=== PATIENT | female | born 1995 | race Caucasian/White ===

== ENCOUNTER 2020-03-19 20:15 | Inpatient (IN) | payer OTHER, SELFPAY ==
[2020-03-19] MEDS ORDERED: TERBUTALINE 1 MG/1 ML INJ SUB-Q PRN (21:22)
[2020-03-19] MEDS ORDERED: LIDOCAINE (2%) 20 MG/1 ML VIAL 20 ML MDV INFILTRATI ONE (21:22)
[2020-03-19] MEDS ORDERED: fentaNYL 100 MCG/2 ML INJ IV PRN (21:22)
[2020-03-19] MEDS ORDERED: ePHEDrine SULFATE 50 MG/1 ML INJ IV PRN (21:22)
[2020-03-19] MEDS ORDERED: MINERAL OIL 30 ML ORAL LIQD PO PRN (21:22)
[2020-03-19] MEDS ORDERED: AMPICILLIN/NS 2 GM/100 ML 2 GM/100 ML BAG IV ONE (21:22)
[2020-03-19] MEDS: LACTATED RINGERS 1,000 ML IV SCH ×2 (21:52→22:50)
[2020-03-19] MEDS ORDERED: OXYTOCIN 20 UNIT/1000ML DRIP 20 UNITS/1,000 ML BAG IV SCH (22:00)
[2020-03-19 22:06] LABS: Hemoglobin 11.4 gm/dl (10.1-14.3); Mean Corpuscular HGB Conc 34 % (30-34); Mean Corpuscular Volume 88 fl (79-97); Platelet Count 223 K/mm3 (140-440); Red Blood Count 3.87 M/mm3 (3.65-5.03); Red Cell Distribution Width 17.4 % (13.2-15.2)
--- NOTE | 2020-03-19 22:51 | History and Physical Report ---
History of Present Illness Date of examination: 03/19/20 Date of admission: 03/19/20 21:22 Chief complaint: Here for scheduled IOL. History of present illness: 25 year old here for scheduled IOL. Patient received care at [facility] and she brings records with her. LMP 06/05/2019. EDC 03/11/2020. significant for the following: GBS bacteriuria (treated during ), anemia (supplemented with iron), chlamydia (treated and cured). labs are as follows: A+, antibody screen negative,, rubella immune, hepatitis B surface antigen negative, HIV negative, RPR nonreactive, chlamydia positive/negative, gonorrhea negative/negative, GBS positive, AFP tetra negative, 1 hour sugar test 95. Past History Past Medical History: no pertinent history Past Surgical History: no surgical history [employer] History: chlamydia (treated during and cured). denies: gonorrhea, hepatitis B, hepatitis C, herpes, HIV, syphilis, trichomonas Family/Genetic History: none Social history: lives with family, full code. denies: smoking, alcohol abuse, prescription drug abuse, IV drug use - Obstetrical History Expected Date of Delivery: 03/11/20 Actual Gestation: 41 Week(s) 1 Day(s) : 1 Para: 0 Hx # Term Pregnancies: 0 Number of Pregnancies: 0 Spontaneous Abortions: 0 Induced : 0 Number of Living Children: 0 Medications and Allergies Allergies Allergy/AdvReac Type Severity Reaction Status Date / Time No Known Allergies Allergy Unverified 03/19/20 21:33 Home Medications Medication Instructions Recorded Confirmed Last Taken Type Pnv Plus Multivit Tab 1 tab PO DAILY 03/19/20 03/19/20 03/19/20 History 0900 Active Meds: Active Medications Acetaminophen (Tylenol) 650 mg PO Q4H PRN PRN Reason: Pain, Mild (1-3) Ephedrine Sulfate (Ephedrine Sulfate) 10 mg IV Q2M PRN PRN Reason: Hypotension Fentanyl (Sublimaze) 100 mcg IV Q2H PRN PRN Reason: Pain,Severe (7-10) LABOR PAIN Oxytocin/Sodium Chloride (Pitocin/Ns 30 Unit/500ml) 30 units in 500 mls @ 2 mls/hr IV TITR SUSANNE; Protocol Lactated Ringer's (Lactated Ringers) 1,000 mls @ 125 mls/hr IV DIRECT SUSANNE Last Admin: 03/19/20 21:52 Dose: 125 mls/hr Documented by: Oxytocin/Sodium Chloride (Pitocin/Ns 20 Unit/1000ml Drip) 20 units in 1,000 mls @ 125 mls/hr IV DIRECT SUSANNE Ampicillin Sodium (Ampicillin/Ns 1 Gm/50 Ml) 1 gm in 50 mls @ 100 mls/hr IV Q4HR SUSANNE; Protocol Mineral Oil (Mineral Oil) 30 ml PO QHS PRN PRN Reason: Constipation Terbutaline Sulfate (Brethine) 0.25 mg SUB-Q ONCE PRN PRN Reason: Hyperstimulation/Hypertonicity Review of Systems All systems: negative (intermittent mild contractions) - Vital Signs Vital signs: Vital Signs Temp Resp 99.7 F H 18 03/19/20 21:35 03/19/20 21:35 Temp Pulse Resp BP Pulse Ox 99.7 F H 75 18 115/75 03/19/20 21:35 03/19/20 21:51 03/19/20 21:35 03/19/20 21:51 - Physical Exam Abdomen: Positive: normal appearance, soft. Negative: distention, tenderness, guarding, rigidity Genitourinary (Female): Positive: normal external genitalia, normal perenium. Negative: perineal/vulvar lesions (no lesions seen on careful exam with bright.) Vagina: Positive: normal moisture Uterus: Positive: enlarged. Negative: tender Anus/Rectum: Positive: normal perianal skin Extremities: Positive: normal. Negative: edema - Obstetrical FHR: category 1 Uterine Contraction Monitor Mode: External Cervical Dilatation: 0 Cervical Effacement Percentage: 0 station: -2 Uterine Contraction Pattern: Irregular Uterine Contraction Intensity: Mild Results Result Diagrams: 03/19/20 21:20 Abnormal lab results 03/19/20 Range/Units 21:20 RDW 17.4 H (13.2-15.2) % All other labs normal. Assessment and Plan A: at 41 weeks, 1 day gestation. IOL. GBS positive. P: Admit. Continuous EFM. GBS prophylaxis. Pitocin cervical ripening and IOL. Pt. consented to cervical ripening and IOL.
--- NOTE | 2020-03-19 23:37 | Ultrasound Report ---
US OB limited INDICATION / CLINICAL INFORMATION: presentation, EFW. COMPARISON: None FINDINGS: Exam was done for positioning and weight. Single intrauterine in cephalic presentation. heart rate 134. Estimated weight is 3918 g. IMPRESSION: 1. Viable, term intrauterine . Cephalic presentation. EFW 3918 g. Signer Name: Obed Emerson MD Signed: 03/19/2020 11:32 PM Workstation Name: [id number]
[2020-03-20] MEDS: OXYTOCIN DRIP 30 UNITS/500 ML BAG IV SCH ×2 (00:04→19:55)
[2020-03-20] MEDS: AMPICILLIN/NS 1 GM/50 ML 1 GM/50 ML BAG IV SCH ×2 (03:00→05:45)
[2020-03-20] MEDS: LACTATED RINGERS 1,000 ML IV SCH ×2 (06:34→21:54)
--- NOTE | 2020-03-20 12:10 | Event Note ---
Date: 03/20/20 Patient is having labor induction; receiving dose Pitocin for cervical ripening/induction. Doing well.
[2020-03-20] MEDS ORDERED: DINOPROSTONE 10 MG VAG SUPP VG ONE (19:19)
[2020-03-21] MEDS: LACTATED RINGERS 1,000 ML IV SCH ×2 (06:59→20:30)
--- NOTE | 2020-03-21 09:23 | Progress Note ---
Assessment and Plan A: at 41 3/7 weeks gestation. IOL. GBS positive. P: Pitocin induction of labor. GBS prophylaxis. Subjective - Subjective Date of service: 03/21/20 Principal diagnosis: at 41 weeks, 3 days gestation Interval history: Patient has been undergoing cervical ripening because she is overdue and her cervix was unfavorable upon admission. Patient has had mild contractions overnight. Denies LOF or VB. Reports good movement. Patient reports: movement normal, contractions, no new complaints, no loss of fluid, no vaginal bleeding Objective - Vital Signs Vital Signs: Vital Signs - 12hr 03/20/20 03/20/20 03/20/20 21:31 22:01 22:31 Temperature Pulse Rate 70 80 123 H Blood Pressure 102/58 126/68 119/56 03/20/20 03/20/20 03/21/20 23:01 23:31 00:01 Temperature Pulse Rate 79 77 74 Blood Pressure 101/57 122/65 98/55 03/21/20 03/21/20 03/21/20 00:31 01:01 01:31 Temperature Pulse Rate 88 72 73 Blood Pressure 106/57 102/62 95/56 03/21/20 03/21/20 03/21/20 02:01 02:31 03:01 Temperature Pulse Rate 87 86 72 Blood Pressure 116/72 114/69 114/74 03/21/20 03/21/20 03/21/20 03:31 04:01 04:02 Temperature Pulse Rate 73 77 67 Blood Pressure 107/60 129/61 116/58 03/21/20 03/21/20 03/21/20 04:31 05:01 05:31 Temperature Pulse Rate 82 71 80 Blood Pressure 95/55 105/67 113/56 03/21/20 03/21/20 03/21/20 06:01 07:01 07:31 Temperature Pulse Rate 86 69 70 Blood Pressure 105/59 111/71 109/69 03/21/20 03/21/20 03/21/20 07:59 08:02 08:36 Temperature 97.9 F Pulse Rate 76 76 Blood Pressure 114/80 117/58 - Exam Abdomen: Present: normal appearance, soft. Absent: distention, tenderness, guarding, rigidity Uterus: Present: fundal height above umbilicus. Absent: tenderness FHR: category 1 Uterine Contraction Monitor Mode: External Cervical Dilatation: 3.5 Cervical Effacement Percentage: 80 station: -2 Uterine Contraction Pattern: Irregular Uterine Contraction Intensity: Mild Extremities: normal - Labs Labs: Abnormal Labs 03/19/20 21:20 RDW 17.4 H Laboratory Results - last 24 hr 03/20/20 11:34 Coronavirus (PCR) Negative
[2020-03-21] MEDS: AMPICILLIN/NS 1 GM/50 ML 1 GM/50 ML BAG IV SCH ×3 (12:08→21:52)
--- NOTE | 2020-03-21 23:13 | Event Note ---
Date: 03/21/202.
[2020-03-22] MEDS: ACETAMINOPHEN 325 MG TAB PO PRN ×2 (02:43→10:00)
--- NOTE | 2020-03-22 03:00 | Event Note ---
Date: 03/22/20 Patient requests epidural. SVE 4.5/90/-2/BBOW. Category 1 FHR tracing.
[2020-03-22] MEDS ORDERED: DEXMEDETOMIDINE 200 MCG/2 ML VIAL IV ONE ×2 (03:08→23:39)
[2020-03-22] MEDS ORDERED: NalbUPHINE 10 MG/1 ML INJ IV PRN (03:34)
[2020-03-22] MEDS ORDERED: diphenhydrAMINE 50 MG/ML VIAL IV PRN (03:34)
[2020-03-22] MEDS ORDERED: NALOXONE 2 MG/2 ML INJ IV PRN (03:34)
--- NOTE | 2020-03-22 03:35 | Anesthesia Consultation ---
Anesthesia Consult and Med Hx Date of service: 03/22/20 - Airway Anesthetic Teeth Evaluation: Good ROM Head & Neck: Adequate Mental/Hyoid Distance: Adequate Mallampati Class: Class II Intubation Access Assessment: Good - Pulmonary Exam CTA: Yes - Cardiac Exam Cardiac Exam: RRR - Pre-Operative Health Status ASA Pre-Surgery Classification: ASA2 Proposed Anesthetic Plan: Epidural - Pulmonary Hx Smoking: No Hx Asthma: No COPD: No Hx Pneumonia: No Hx Sleep Apnea: No - Cardiovascular System Hx Hypertension: No - Central Nervous System Hx Seizures: No Hx Psychiatric Problems: No - Gastrointestinal Hx Gastroesophageal Reflux Disease: No - Endocrine Hx Renal Disease: No Hx End Stage Renal Disease: No Hx Hypothyroidism: No Hx Hyperthyroidism: No - Hematic Hx Anemia: No Hx Sickle Cell Disease: No - Other Systems Hx Alcohol Use: No
--- NOTE | 2020-03-22 03:37 | Progress Note ---
Labor Epidural - Labor Epidural Start Time: 03:13 Stop Time: 03:30 Performed by:: PHILLIP ROSSI Procedure: Patient is requesting a laboring epidural for laboring pain. Patient IDed, H&P reviewed, all questions and concerns were answered, and consent was signed. Timeout was performed at bedside. Patient in sitting position. Sterile prep and drape was performed. 3ml of 1% lidocaine skin wheal at L[3]- L [4]. 18- gauge Touhy epidural needle was advanced to loss of resistance with air technique. Negative CSF negative blood. Epidural catheter advanced to [12] centimeters. [-] Aspiration [-] test dose. Sterile dressing applied. Patient tolerated procedure.
[2020-03-22] MEDS: AMPICILLIN/NS 1 GM/50 ML 1 GM/50 ML BAG IV SCH ×4 (03:46→21:19)
[2020-03-22] MEDS: LACTATED RINGERS 1,000 ML IV SCH ×3 (05:23→22:33)
[2020-03-22] MEDS: fentaNYL-BUPIV 2 MCG/ML-0.125% 200 MCG/100 ML BAG EPIDURAL SCH ×3 (05:27→22:49)
--- NOTE | 2020-03-22 07:08 | Event Note ---
Date: 03/22/20 /-2/BBOW. Category 1 FHR tracing. MD aware of slow progress of labor. Pt. comfortable after receiving epidural. Pitocin augmentation continues.
[2020-03-22] MEDS: ONDANSETRON 4 MG/2 ML INJ IV PRN (10:04)
--- NOTE | 2020-03-22 10:35 | Progress Note ---
Assessment and Plan A: IUP @ 41 4/7 Weeks Category I Tracing Active Labor GBS Positive P: Continue Pitocin Augmentation Continue GBS Prophylaxis AROM Internals X 2 Multiple Maternal Position Changes Subjective - Subjective Principal diagnosis: at 41 weeks, 3 days gestation Patient reports: movement normal, other (Resting well under epidural anesthesia), no new complaints, no loss of fluid, no vaginal bleeding Objective - Vital Signs Vital Signs: Vital Signs - 12hr 03/21/20 03/21/20 03/21/20 22:31 22:32 22:37 Temperature Pulse Rate 72 76 83 Blood Pressure 119/75 O2 Sat by Pulse 99 100 Oximetry 03/21/20 03/21/20 03/21/20 22:42 22:47 22:52 Temperature Pulse Rate 89 83 80 Blood Pressure O2 Sat by Pulse 98 100 100 Oximetry 03/21/20 03/21/20 03/21/20 22:57 23:01 23:02 Temperature Pulse Rate 75 72 80 Blood Pressure 118/70 O2 Sat by Pulse 100 100 Oximetry 03/21/20 03/21/20 03/21/20 23:07 23:12 23:27 Temperature Pulse Rate 85 76 Blood Pressure O2 Sat by Pulse 100 99 79 L Oximetry 03/21/20 03/21/20 03/21/20 23:29 23:31 23:34 Temperature Pulse Rate 79 85 73 Blood Pressure 118/78 O2 Sat by Pulse 98 100 Oximetry 03/21/20 03/21/20 03/21/20 23:39 23:44 23:49 Temperature Pulse Rate 76 73 71 Blood Pressure O2 Sat by Pulse 100 100 100 Oximetry 03/21/20 03/21/20 03/22/20 23:54 23:59 00:01 Temperature Pulse Rate 90 74 71 Blood Pressure 110/68 O2 Sat by Pulse 100 100 Oximetry 03/22/20 03/22/20 03/22/20 00:04 00:09 00:14 Temperature Pulse Rate 70 77 76 Blood Pressure O2 Sat by Pulse 100 100 100 Oximetry 03/22/20 03/22/20 03/22/20 00:19 00:24 00:29 Temperature Pulse Rate 78 84 78 Blood Pressure O2 Sat by Pulse 100 100 100 Oximetry 03/22/20 03/22/20 03/22/20 00:31 00:34 00:39 Temperature Pulse Rate 72 79 80 Blood Pressure 113/74 O2 Sat by Pulse 100 81 L Oximetry 03/22/20 03/22/20 03/22/20 00:44 00:49 00:54 Temperature Pulse Rate 76 89 78 Blood Pressure O2 Sat by Pulse 99 99 99 Oximetry 03/22/20 03/22/20 03/22/20 00:59 01:01 01:04 Temperature Pulse Rate 76 82 83 Blood Pressure 126/77 O2 Sat by Pulse 100 99 Oximetry 03/22/20 03/22/20 03/22/20 01:09 01:14 01:19 Temperature Pulse Rate 86 88 87 Blood Pressure O2 Sat by Pulse 98 99 100 Oximetry 03/22/20 03/22/20 03/22/20 01:24 01:29 01:31 Temperature Pulse Rate 85 78 81 Blood Pressure 107/66 O2 Sat by Pulse 99 99 Oximetry 03/22/20 03/22/20 03/22/20 01:34 01:39 01:44 Temperature Pulse Rate 102 H 84 83 Blood Pressure O2 Sat by Pulse 97 100 99 Oximetry 03/22/20 03/22/20 03/22/20 01:49 01:54 01:59 Temperature Pulse Rate 82 76 81 Blood Pressure O2 Sat by Pulse 98 99 99 Oximetry 03/22/20 03/22/20 03/22/20 02:03 02:04 02:09 Temperature Pulse Rate 77 74 76 Blood Pressure 116/65 O2 Sat by Pulse 99 99 Oximetry 03/22/20 03/22/20 03/22/20 02:14 02:19 02:24 Temperature Pulse Rate 78 76 79 Blood Pressure O2 Sat by Pulse 99 98 100 Oximetry 03/22/20 03/22/20 03/22/20 02:29 02:32 02:34 Temperature Pulse Rate 85 78 72 Blood Pressure 119/64 O2 Sat by Pulse 99 99 Oximetry 03/22/20 03/22/20 03/22/20 02:39 02:44 02:49 Temperature Pulse Rate 76 75 94 H Blood Pressure O2 Sat by Pulse 100 100 99 Oximetry 03/22/20 03/22/20 03/22/20 02:54 02:59 03:01 Temperature Pulse Rate 94 H 97 H 86 Blood Pressure 114/74 O2 Sat by Pulse 100 100 Oximetry 03/22/20 03/22/20 03/22/20 03:04 03:09 03:10 Temperature 98.8 F Pulse Rate 90 114 H Blood Pressure O2 Sat by Pulse 100 91 Oximetry 03/22/20 03/22/20 03/22/20 03:13 03:14 03:16 Temperature Pulse Rate 109 H 86 75 Blood Pressure 148/90 123/80 129/81 O2 Sat by Pulse 100 Oximetry 03/22/20 03/22/20 03/22/20 03:18 03:19 03:20 Temperature Pulse Rate 85 95 H 83 Blood Pressure 130/83 127/81 O2 Sat by Pulse 100 Oximetry 03/22/20 03/22/20 03/22/20 03:22 03:24 03:26 Temperature Pulse Rate 82 83 85 Blood Pressure 125/80 125/81 121/81 O2 Sat by Pulse 100 Oximetry 03/22/20 03/22/20 03/22/20 03:28 03:29 03:30 Temperature Pulse Rate 104 H 85 78 Blood Pressure 126/81 124/72 O2 Sat by Pulse 100 Oximetry 03/22/20 03/22/20 03/22/20 03:32 03:34 03:35 Temperature Pulse Rate 71 77 77 Blood Pressure 112/59 110/64 O2 Sat by Pulse 100 Oximetry 03/22/20 03/22/20 03/22/20 03:36 03:38 03:39 Temperature Pulse Rate 73 74 78 Blood Pressure 109/61 110/58 O2 Sat by Pulse 100 Oximetry 03/22/20 03/22/20 03/22/20 03:44 03:49 03:54 Temperature Pulse Rate 82 82 77 Blood Pressure 104/60 O2 Sat by Pulse 100 99 99 Oximetry 03/22/20 03/22/20 03/22/20 03:59 04:04 04:09 Temperature Pulse Rate 81 79 79 Blood Pressure O2 Sat by Pulse 99 99 99 Oximetry 03/22/20 03/22/20 03/22/20 04:10 04:14 04:19 Temperature Pulse Rate 79 82 83 Blood Pressure 101/59 O2 Sat by Pulse 99 98 Oximetry 03/22/20 03/22/20 03/22/20 04:24 04:29 04:34 Temperature Pulse Rate 82 81 81 Blood Pressure 97/55 O2 Sat by Pulse 98 98 98 Oximetry 03/22/20 03/22/20 03/22/20 04:39 04:44 04:49 Temperature Pulse Rate 80 83 82 Blood Pressure 97/53 O2 Sat by Pulse 98 98 99 Oximetry 03/22/20 03/22/20 03/22/20 04:54 04:55 04:59 Temperature Pulse Rate 79 78 81 Blood Pressure 98/55 O2 Sat by Pulse 98 98 Oximetry 03/22/20 03/22/20 03/22/20 05:04 05:09 05:14 Temperature Pulse Rate 81 83 106 H Blood Pressure 96/55 O2 Sat by Pulse 99 99 100 Oximetry 03/22/20 03/22/20 03/22/20 05:19 05:24 05:25 Temperature Pulse Rate 76 79 74 Blood Pressure 97/52 O2 Sat by Pulse 98 99 Oximetry 03/22/20 03/22/20 03/22/20 05:29 05:34 05:39 Temperature Pulse Rate 82 80 81 Blood Pressure 103/53 O2 Sat by Pulse 99 99 99 Oximetry 03/22/20 03/22/20 03/22/20 05:44 05:49 05:54 Temperature Pulse Rate 78 79 77 Blood Pressure O2 Sat by Pulse 99 99 99 Oximetry 03/22/20 03/22/20 03/22/20 05:55 05:59 06:04 Temperature Pulse Rate 77 83 82 Blood Pressure 100/56 O2 Sat by Pulse 99 99 Oximetry 03/22/20 03/22/20 03/22/20 06:09 06:11 06:14 Temperature Pulse Rate 77 76 82 Blood Pressure 103/59 O2 Sat by Pulse 99 99 Oximetry 03/22/20 03/22/20 03/22/20 06:19 06:24 06:25 Temperature Pulse Rate 90 80 82 Blood Pressure 103/55 O2 Sat by Pulse 99 98 Oximetry 03/22/20 03/22/20 03/22/20 06:29 06:34 06:39 Temperature Pulse Rate 86 83 84 Blood Pressure 97/54 O2 Sat by Pulse 99 99 99 Oximetry 03/22/20 03/22/20 03/22/20 06:44 06:49 06:54 Temperature Pulse Rate 80 83 79 Blood Pressure O2 Sat by Pulse 99 99 99 Oximetry 03/22/20 03/22/20 03/22/20 06:56 06:59 07:04 Temperature Pulse Rate 77 89 94 H Blood Pressure 103/56 O2 Sat by Pulse 100 99 Oximetry 03/22/20 03/22/20 03/22/20 07:09 07:14 07:19 Temperature Pulse Rate 82 76 76 Blood Pressure 99/56 O2 Sat by Pulse 100 99 99 Oximetry 03/22/20 03/22/20 03/22/20 07:24 07:29 07:34 Temperature Pulse Rate 76 75 72 Blood Pressure O2 Sat by Pulse 99 99 99 Oximetry 03/22/20 03/22/20 03/22/20 07:39 07:44 07:49 Temperature Pulse Rate 68 71 75 Blood Pressure O2 Sat by Pulse 99 99 99 Oximetry 03/22/20 03/22/20 03/22/20 07:54 07:59 08:04 Temperature Pulse Rate 70 73 73 Blood Pressure O2 Sat by Pulse 99 99 99 Oximetry 03/22/20 03/22/20 03/22/20 08:09 08:14 08:19 Temperature Pulse Rate 74 74 73 Blood Pressure O2 Sat by Pulse 99 98 99 Oximetry 03/22/20 03/22/20 03/22/20 08:24 08:25 08:29 Temperature Pulse Rate 81 82 69 Blood Pressure 103/55 O2 Sat by Pulse 100 100 Oximetry 03/22/20 03/22/20 03/22/20 08:34 08:39 08:44 Temperature Pulse Rate 70 74 74 Blood Pressure 104/57 O2 Sat by Pulse 99 99 99 Oximetry 03/22/20 03/22/20 03/22/20 08:49 08:54 08:56 Temperature Pulse Rate 78 74 69 Blood Pressure 110/59 O2 Sat by Pulse 99 99 Oximetry 03/22/20 03/22/20 03/22/20 08:59 09:04 09:09 Temperature Pulse Rate 84 70 79 Blood Pressure O2 Sat by Pulse 99 99 100 Oximetry 03/22/20 03/22/20 03/22/20 09:10 09:14 09:19 Temperature Pulse Rate 75 91 H 75 Blood Pressure 114/62 O2 Sat by Pulse 99 99 Oximetry 03/22/20 03/22/20 03/22/20 09:24 09:29 09:34 Temperature Pulse Rate 75 76 78 Blood Pressure 120/71 O2 Sat by Pulse 100 99 100 Oximetry 03/22/20 03/22/20 03/22/20 09:39 09:44 09:49 Temperature Pulse Rate 80 78 81 Blood Pressure O2 Sat by Pulse 100 100 100 Oximetry 03/22/20 03/22/20 09:54 09:59 Temperature Pulse Rate 90 81 Blood Pressure O2 Sat by Pulse 100 100 Oximetry - Exam Cardiovascular: Regular rate Lungs: Normal air movement Abdomen: Present: normal appearance, soft Uterus: Present: normal, firm, fundal height above umbilicus FHR: category 1 Uterine Contraction Monitor Mode: Internal Cervical Dilatation: 5 (Thick brown meconium stained fluids upon AROM at 1017) Cervical Effacement Percentage: 80 station: -2 Uterine Contraction Pattern: Irregular Uterine Tone Measurement Phase: Resting Uterine Contraction Intensity: Moderate Extremities: normal - Labs Labs: Abnormal Labs 03/19/20 21:20 RDW 17.4 H
[2020-03-22 13:42] LABS: Hematocrit 31.8 % (30.3-42.9); Hemoglobin 10.6 gm/dl (10.1-14.3); Mean Corpuscular HGB Conc 33 % (30-34); Mean Corpuscular Volume 89 fl (79-97); Platelet Count 185 K/mm3 (140-440); Red Blood Count 3.59 M/mm3 (3.65-5.03); Red Cell Distribution Width 17.7 % (13.2-15.2)
--- NOTE | 2020-03-22 15:48 | Progress Note ---
Assessment and Plan A: IUP @ 41 4/7 Weeks Category I Tracing Active Labor GBS Positive P: Continue Pitocin Augmentation Continue GBS Prophylaxis Multiple Maternal Position Changes Subjective - Subjective Principal diagnosis: at 41 weeks, 3 days gestation Patient reports: movement normal, other (Resting well under epidural anesthesia), no new complaints, no loss of fluid, no vaginal bleeding Objective - Vital Signs Vital Signs: Vital Signs - 12hr 03/22/20 03/22/20 03/22/20 03:49 03:54 03:59 Temperature Pulse Rate 82 77 81 Respiratory Rate Blood Pressure 104/60 O2 Sat by Pulse 99 99 99 Oximetry 03/22/20 03/22/20 03/22/20 04:04 04:09 04:10 Temperature Pulse Rate 79 79 79 Respiratory Rate Blood Pressure 101/59 O2 Sat by Pulse 99 99 Oximetry 03/22/20 03/22/20 03/22/20 04:14 04:19 04:24 Temperature Pulse Rate 82 83 82 Respiratory Rate Blood Pressure 97/55 O2 Sat by Pulse 99 98 98 Oximetry 03/22/20 03/22/20 03/22/20 04:29 04:34 04:39 Temperature Pulse Rate 81 81 80 Respiratory Rate Blood Pressure 97/53 O2 Sat by Pulse 98 98 98 Oximetry 03/22/20 03/22/20 03/22/20 04:44 04:49 04:54 Temperature Pulse Rate 83 82 79 Respiratory Rate Blood Pressure O2 Sat by Pulse 98 99 98 Oximetry 03/22/20 03/22/20 03/22/20 04:55 04:59 05:04 Temperature Pulse Rate 78 81 81 Respiratory Rate Blood Pressure 98/55 O2 Sat by Pulse 98 99 Oximetry 03/22/20 03/22/20 03/22/20 05:09 05:14 05:19 Temperature Pulse Rate 83 106 H 76 Respiratory Rate Blood Pressure 96/55 O2 Sat by Pulse 99 100 98 Oximetry 03/22/20 03/22/20 03/22/20 05:24 05:25 05:29 Temperature Pulse Rate 79 74 82 Respiratory Rate Blood Pressure 97/52 O2 Sat by Pulse 99 99 Oximetry 03/22/20 03/22/20 03/22/20 05:34 05:39 05:44 Temperature Pulse Rate 80 81 78 Respiratory Rate Blood Pressure 103/53 O2 Sat by Pulse 99 99 99 Oximetry 03/22/20 03/22/2020 05:49 05:54 05:55 Temperature Pulse Rate 79 77 77 Respiratory Rate Blood Pressure 100/56 O2 Sat by Pulse 99 99 Oximetry 03/22/20 03/22/20 03/22/20 05:59 06:04 06:09 Temperature Pulse Rate 83 82 77 Respiratory Rate Blood Pressure O2 Sat by Pulse 99 99 99 Oximetry 03/22/20 03/22/20 03/22/20 06:11 06:14 06:19 Temperature Pulse Rate 76 82 90 Respiratory Rate Blood Pressure 103/59 O2 Sat by Pulse 99 99 Oximetry 03/22/20 03/22/20 03/22/20 06:24 06:25 06:29 Temperature Pulse Rate 80 82 86 Respiratory Rate Blood Pressure 103/55 O2 Sat by Pulse 98 99 Oximetry 03/22/20 03/22/20 03/22/20 06:34 06:39 06:44 Temperature Pulse Rate 83 84 80 Respiratory Rate Blood Pressure 97/54 O2 Sat by Pulse 99 99 99 Oximetry 03/22/20 03/22/20 03/22/20 06:49 06:54 06:56 Temperature Pulse Rate 83 79 77 Respiratory Rate Blood Pressure 103/56 O2 Sat by Pulse 99 99 Oximetry 03/22/20 03/22/20 03/22/20 06:59 07:04 07:09 Temperature Pulse Rate 89 94 H 82 Respiratory Rate Blood Pressure 99/56 O2 Sat by Pulse 100 99 100 Oximetry 03/22/20 03/22/20 03/22/20 07:14 07:19 07:24 Temperature Pulse Rate 76 76 76 Respiratory Rate Blood Pressure O2 Sat by Pulse 99 99 99 Oximetry 03/22/20 03/22/20 03/22/20 07:29 07:34 07:39 Temperature Pulse Rate 75 72 68 Respiratory Rate Blood Pressure O2 Sat by Pulse 99 99 99 Oximetry 03/22/20 03/22/20 03/22/20 07:44 07:49 07:54 Temperature Pulse Rate 71 75 70 Respiratory Rate Blood Pressure O2 Sat by Pulse 99 99 99 Oximetry 03/22/20 03/22/20 03/22/20 07:59 08:04 08:09 Temperature Pulse Rate 73 73 74 Respiratory Rate Blood Pressure O2 Sat by Pulse 99 99 99 Oximetry 03/22/20 03/22/20 03/22/20 08:14 08:19 08:24 Temperature Pulse Rate 74 73 81 Respiratory Rate Blood Pressure O2 Sat by Pulse 98 99 100 Oximetry 03/22/20 03/22/20 03/22/20 08:25 08:29 08:34 Temperature Pulse Rate 82 69 70 Respiratory Rate Blood Pressure 103/55 O2 Sat by Pulse 100 99 Oximetry 03/22/20 03/22/20 03/22/20 08:39 08:44 08:49 Temperature Pulse Rate 74 74 78 Respiratory Rate Blood Pressure 104/57 O2 Sat by Pulse 99 99 99 Oximetry 03/22/20 03/22/20 03/22/20 08:54 08:56 08:59 Temperature Pulse Rate 74 69 84 Respiratory Rate Blood Pressure 110/59 O2 Sat by Pulse 99 99 Oximetry 03/22/20 03/22/20 03/22/20 09:04 09:09 09:10 Temperature Pulse Rate 70 79 75 Respiratory Rate Blood Pressure 114/62 O2 Sat by Pulse 99 100 Oximetry 03/22/20 03/22/20 03/22/20 09:14 09:19 09:24 Temperature Pulse Rate 91 H 75 75 Respiratory Rate Blood Pressure 120/71 O2 Sat by Pulse 99 99 100 Oximetry 03/22/20 03/22/20 03/22/20 09:29 09:34 09:39 Temperature Pulse Rate 76 78 80 Respiratory Rate Blood Pressure O2 Sat by Pulse 99 100 100 Oximetry 03/22/20 03/22/20 03/22/20 09:44 09:49 09:54 Temperature Pulse Rate 78 81 90 Respiratory Rate Blood Pressure O2 Sat by Pulse 100 100 100 Oximetry 03/22/20 03/22/20 03/22/20 09:59 10:30 10:37 Temperature 98.4 F Pulse Rate 81 74 Respiratory 18 Rate Blood Pressure 117/75 O2 Sat by Pulse 100 Oximetry 03/22/20 03/22/20 03/22/20 10:42 10:47 10:52 Temperature Pulse Rate 70 72 73 Respiratory Rate Blood Pressure O2 Sat by Pulse 99 100 100 Oximetry 03/22/20 03/22/20 03/22/20 10:57 11:02 11:07 Temperature Pulse Rate 73 70 73 Respiratory Rate Blood Pressure O2 Sat by Pulse 99 100 100 Oximetry 03/22/20 03/22/20 03/22/20 11:12 11:17 11:22 Temperature Pulse Rate 76 74 71 Respiratory Rate Blood Pressure O2 Sat by Pulse 100 100 99 Oximetry 03/22/20 03/22/20 03/22/20 11:27 11:32 11:37 Temperature Pulse Rate 64 68 75 Respiratory Rate Blood Pressure 111/73 O2 Sat by Pulse 100 99 99 Oximetry 03/22/20 03/22/20 03/22/20 11:42 11:47 11:52 Temperature Pulse Rate 95 H 71 78 Respiratory Rate Blood Pressure O2 Sat by Pulse 99 100 100 Oximetry 03/22/20 03/22/20 03/22/20 11:57 12:02 12:07 Temperature Pulse Rate 72 72 83 Respiratory Rate Blood Pressure O2 Sat by Pulse 100 100 100 Oximetry 03/22/20 03/22/20 03/22/20 12:12 12:17 12:22 Temperature Pulse Rate 79 90 79 Respiratory Rate Blood Pressure O2 Sat by Pulse 100 100 100 Oximetry 03/22/20 03/22/20 03/22/20 12:27 12:32 12:37 Temperature Pulse Rate 77 85 71 Respiratory Rate Blood Pressure O2 Sat by Pulse 100 100 100 Oximetry 03/22/20 03/22/20 03/22/20 12:38 12:42 12:47 Temperature Pulse Rate 67 69 69 Respiratory Rate Blood Pressure 104/53 O2 Sat by Pulse 100 100 Oximetry 03/22/20 03/22/20 03/22/20 12:52 12:57 13:02 Temperature Pulse Rate 73 71 72 Respiratory Rate Blood Pressure O2 Sat by Pulse 100 100 100 Oximetry 03/22/20 03/22/20 03/22/20 13:07 13:12 13:17 Temperature Pulse Rate 72 71 68 Respiratory Rate Blood Pressure O2 Sat by Pulse 100 100 100 Oximetry 03/22/20 03/22/20 03/22/20 13:22 13:27 13:32 Temperature Pulse Rate 79 77 70 Respiratory Rate Blood Pressure O2 Sat by Pulse 100 100 100 Oximetry 03/22/20 03/22/20 03/22/20 13:37 13:38 13:42 Temperature Pulse Rate 75 75 72 Respiratory Rate Blood Pressure 116/73 O2 Sat by Pulse 100 100 Oximetry 03/22/20 03/22/20 03/22/20 13:47 13:52 13:57 Temperature Pulse Rate 70 69 92 H Respiratory Rate Blood Pressure O2 Sat by Pulse 100 100 100 Oximetry 03/22/20 03/22/20 03/22/20 14:02 14:07 14:12 Temperature Pulse Rate 72 68 68 Respiratory Rate Blood Pressure O2 Sat by Pulse 100 100 100 Oximetry 03/22/20 03/22/20 03/22/20 14:17 14:22 14:27 Temperature Pulse Rate 67 67 68 Respiratory Rate Blood Pressure O2 Sat by Pulse 100 100 100 Oximetry 03/22/20 03/22/20 03/22/20 14:32 14:37 14:38 Temperature Pulse Rate 68 77 75 Respiratory Rate Blood Pressure 128/84 O2 Sat by Pulse 100 100 Oximetry 03/22/20 03/22/20 03/22/20 14:42 14:47 14:52 Temperature Pulse Rate 74 81 70 Respiratory Rate Blood Pressure O2 Sat by Pulse 100 100 100 Oximetry 03/22/20 03/22/20 03/22/20 14:57 15:02 15:07 Temperature Pulse Rate 79 75 70 Respiratory Rate Blood Pressure O2 Sat by Pulse 100 100 100 Oximetry 03/22/20 03/22/20 03/22/20 15:12 15:17 15:22 Temperature Pulse Rate 67 66 67 Respiratory Rate Blood Pressure O2 Sat by Pulse 100 100 100 Oximetry 03/22/20 03/22/20 03/22/20 15:27 15:32 15:37 Temperature Pulse Rate 69 69 101 H Respiratory Rate Blood Pressure O2 Sat by Pulse 100 100 100 Oximetry 03/22/20 03/22/20 15:39 15:42 Temperature Pulse Rate 83 74 Respiratory Rate Blood Pressure 130/82 O2 Sat by Pulse 100 Oximetry - Exam Breasts: normal Cardiovascular: Regular rate Lungs: Normal air movement Abdomen: Present: normal appearance, soft Uterus: Present: normal, firm, fundal height above umbilicus FHR: category 1 Uterine Contraction Monitor Mode: Internal Cervical Dilatation: 7 Cervical Effacement Percentage: 80 station: -2 Uterine Contraction Pattern: Regular Uterine Tone Measurement Phase: Resting Uterine Contraction Intensity: Moderate Extremities: normal - Labs Labs: Abnormal Labs 03/19/20 03/22/20 21:20 13:22 RBC 3.59 L RDW 17.4 H 17.7 H Laboratory Results - last 24 hr 03/22/20 03/22/20 13:22 13:22 WBC 8.0 RBC 3.59 L Hgb 10.6 Hct 31.8 MCV 89 MCH 30 MCHC 33 RDW 17.7 H Plt Count 185 Blood Type A POSITIVE Antibody Screen Negative
--- NOTE | 2020-03-22 18:07 | Progress Note ---
Subjective - Subjective Date of service: 03/22/20 Principal diagnosis: at 41 weeks, 3 days gestation Interval history: 9cm/90%/-2 2cm caput FHT Category 1 Morley:Q1 minute will re-check cervix, if no descent in 2 hrs plan for section Otto Lara MD Patient reports: movement normal, other (Resting well under epidural anesthesia), no new complaints, no loss of fluid, no vaginal bleeding Objective - Vital Signs Vital Signs: Vital Signs - 12hr 03/22/20 03/22/20 03/22/20 06:09 06:11 06:14 Temperature Pulse Rate 77 76 82 Respiratory Rate Blood Pressure 103/59 O2 Sat by Pulse 99 99 Oximetry 03/22/20 03/22/20 03/22/20 06:19 06:24 06:25 Temperature Pulse Rate 90 80 82 Respiratory Rate Blood Pressure 103/55 O2 Sat by Pulse 99 98 Oximetry 03/22/20 03/22/20 03/22/20 06:29 06:34 06:39 Temperature Pulse Rate 86 83 84 Respiratory Rate Blood Pressure 97/54 O2 Sat by Pulse 99 99 99 Oximetry 03/22/20 03/22/20 03/22/20 06:44 06:49 06:54 Temperature Pulse Rate 80 83 79 Respiratory Rate Blood Pressure O2 Sat by Pulse 99 99 99 Oximetry 03/22/20 03/22/20 03/22/20 06:56 06:59 07:04 Temperature Pulse Rate 77 89 94 H Respiratory Rate Blood Pressure 103/56 O2 Sat by Pulse 100 99 Oximetry 03/22/20 03/22/20 03/22/20 07:09 07:14 07:19 Temperature Pulse Rate 82 76 76 Respiratory Rate Blood Pressure 99/56 O2 Sat by Pulse 100 99 99 Oximetry 03/22/20 03/22/20 03/22/20 07:24 07:29 07:34 Temperature Pulse Rate 76 75 72 Respiratory Rate Blood Pressure O2 Sat by Pulse 99 99 99 Oximetry 03/22/20 03/22/20 03/22/20 07:39 07:44 07:49 Temperature Pulse Rate 68 71 75 Respiratory Rate Blood Pressure O2 Sat by Pulse 99 99 99 Oximetry 03/22/20 03/22/20 03/22/20 07:54 07:59 08:04 Temperature Pulse Rate 70 73 73 Respiratory Rate Blood Pressure O2 Sat by Pulse 99 99 99 Oximetry 03/22/20 03/22/20 03/22/20 08:09 08:14 08:19 Temperature Pulse Rate 74 74 73 Respiratory Rate Blood Pressure O2 Sat by Pulse 99 98 99 Oximetry 03/22/20 03/22/20 03/22/20 08:24 08:25 08:29 Temperature Pulse Rate 81 82 69 Respiratory Rate Blood Pressure 103/55 O2 Sat by Pulse 100 100 Oximetry 03/22/20 03/22/20 03/22/20 08:34 08:39 08:44 Temperature Pulse Rate 70 74 74 Respiratory Rate Blood Pressure 104/57 O2 Sat by Pulse 99 99 99 Oximetry 03/22/20 03/22/20 03/22/20 08:49 08:54 08:56 Temperature Pulse Rate 78 74 69 Respiratory Rate Blood Pressure 110/59 O2 Sat by Pulse 99 99 Oximetry 03/22/20 03/22/20 03/22/20 08:59 09:04 09:09 Temperature Pulse Rate 84 70 79 Respiratory Rate Blood Pressure O2 Sat by Pulse 99 99 100 Oximetry 03/22/20 03/22/20 03/22/20 09:10 09:14 09:19 Temperature Pulse Rate 75 91 H 75 Respiratory Rate Blood Pressure 114/62 O2 Sat by Pulse 99 99 Oximetry 03/22/20 03/22/20 03/22/20 09:24 09:29 09:34 Temperature Pulse Rate 75 76 78 Respiratory Rate Blood Pressure 120/71 O2 Sat by Pulse 100 99 100 Oximetry 03/22/20 03/22/20 03/22/20 09:39 09:44 09:49 Temperature Pulse Rate 80 78 81 Respiratory Rate Blood Pressure O2 Sat by Pulse 100 100 100 Oximetry 03/22/20 03/22/20 03/22/20 09:54 09:59 10:30 Temperature 98.4 F Pulse Rate 90 81 Respiratory 18 Rate Blood Pressure O2 Sat by Pulse 100 100 Oximetry 03/22/20 03/22/20 03/22/20 10:37 10:42 10:47 Temperature Pulse Rate 74 70 72 Respiratory Rate Blood Pressure 117/75 O2 Sat by Pulse 99 100 Oximetry 03/22/20 03/22/20 03/22/20 10:52 10:57 11:02 Temperature Pulse Rate 73 73 70 Respiratory Rate Blood Pressure O2 Sat by Pulse 100 99 100 Oximetry 03/22/20 03/22/20 03/22/20 11:07 11:12 11:17 Temperature Pulse Rate 73 76 74 Respiratory Rate Blood Pressure O2 Sat by Pulse 100 100 100 Oximetry 03/22/20 03/22/20 03/22/20 11:22 11:27 11:32 Temperature Pulse Rate 71 64 68 Respiratory Rate Blood Pressure O2 Sat by Pulse 99 100 99 Oximetry 03/22/20 03/22/20 03/22/20 11:37 11:42 11:47 Temperature Pulse Rate 75 95 H 71 Respiratory Rate Blood Pressure 111/73 O2 Sat by Pulse 99 99 100 Oximetry 03/22/20 03/22/20 03/22/20 11:52 11:57 12:02 Temperature Pulse Rate 78 72 72 Respiratory Rate Blood Pressure O2 Sat by Pulse 100 100 100 Oximetry 03/22/20 03/22/20 03/22/20 12:07 12:12 12:17 Temperature Pulse Rate 83 79 90 Respiratory Rate Blood Pressure O2 Sat by Pulse 100 100 100 Oximetry 03/22/20 03/22/20 03/22/20 12:22 12:27 12:32 Temperature Pulse Rate 79 77 85 Respiratory Rate Blood Pressure O2 Sat by Pulse 100 100 100 Oximetry 03/22/20 03/22/20 03/22/20 12:37 12:38 12:42 Temperature Pulse Rate 71 67 69 Respiratory Rate Blood Pressure 104/53 O2 Sat by Pulse 100 100 Oximetry 03/22/20 03/22/20 03/22/20 12:47 12:52 12:57 Temperature Pulse Rate 69 73 71 Respiratory Rate Blood Pressure O2 Sat by Pulse 100 100 100 Oximetry 03/22/20 03/22/20 03/22/20 13:02 13:07 13:12 Temperature Pulse Rate 72 72 71 Respiratory Rate Blood Pressure O2 Sat by Pulse 100 100 100 Oximetry 03/22/20 03/22/20 03/22/20 13:17 13:22 13:27 Temperature Pulse Rate 68 79 77 Respiratory Rate Blood Pressure O2 Sat by Pulse 100 100 100 Oximetry 03/22/20 03/22/20 03/22/20 13:32 13:37 13:38 Temperature Pulse Rate 70 75 75 Respiratory Rate Blood Pressure 116/73 O2 Sat by Pulse 100 100 Oximetry 03/22/20 03/22/20 03/22/20 13:42 13:47 13:52 Temperature Pulse Rate 72 70 69 Respiratory Rate Blood Pressure O2 Sat by Pulse 100 100 100 Oximetry 03/22/20 03/22/20 03/22/20 13:57 14:02 14:07 Temperature Pulse Rate 92 H 72 68 Respiratory Rate Blood Pressure O2 Sat by Pulse 100 100 100 Oximetry 03/22/20 03/22/20 03/22/20 14:12 14:17 14:22 Temperature Pulse Rate 68 67 67 Respiratory Rate Blood Pressure O2 Sat by Pulse 100 100 100 Oximetry 03/22/20 03/22/20 03/22/20 14:27 14:32 14:37 Temperature Pulse Rate 68 68 77 Respiratory Rate Blood Pressure O2 Sat by Pulse 100 100 100 Oximetry 03/22/20 03/22/20 03/22/20 14:38 14:42 14:47 Temperature Pulse Rate 75 74 81 Respiratory Rate Blood Pressure 128/84 O2 Sat by Pulse 100 100 Oximetry 03/22/20 03/22/20 03/22/20 14:52 14:57 15:02 Temperature Pulse Rate 70 79 75 Respiratory Rate Blood Pressure O2 Sat by Pulse 100 100 100 Oximetry 03/22/20 03/22/20 03/22/20 15:07 15:12 15:17 Temperature Pulse Rate 70 67 66 Respiratory Rate Blood Pressure O2 Sat by Pulse 100 100 100 Oximetry 03/22/20 03/22/20 03/22/20 15:22 15:27 15:32 Temperature Pulse Rate 67 69 69 Respiratory Rate Blood Pressure O2 Sat by Pulse 100 100 100 Oximetry 03/22/20 03/22/20 03/22/20 15:37 15:39 15:42 Temperature Pulse Rate 101 H 83 74 Respiratory Rate Blood Pressure 130/82 O2 Sat by Pulse 100 100 Oximetry 03/22/20 03/22/20 03/22/20 15:47 15:52 15:57 Temperature Pulse Rate 82 84 85 Respiratory Rate Blood Pressure O2 Sat by Pulse 100 100 100 Oximetry 03/22/20 03/22/20 03/22/20 16:02 16:07 16:12 Temperature Pulse Rate 79 76 76 Respiratory Rate Blood Pressure O2 Sat by Pulse 100 100 100 Oximetry 03/22/20 03/22/20 03/22/20 16:17 16:22 16:27 Temperature Pulse Rate 81 83 77 Respiratory Rate Blood Pressure O2 Sat by Pulse 100 100 100 Oximetry 03/22/20 03/22/20 03/22/20 16:32 16:37 16:42 Temperature Pulse Rate 100 H 85 91 H Respiratory Rate Blood Pressure 143/95 O2 Sat by Pulse 100 99 100 Oximetry 03/22/20 03/22/20 03/22/20 16:47 16:52 16:57 Temperature Pulse Rate 82 82 77 Respiratory Rate Blood Pressure O2 Sat by Pulse 100 100 100 Oximetry 03/22/20 03/22/20 03/22/20 17:02 17:07 17:12 Temperature Pulse Rate 78 86 93 H Respiratory Rate Blood Pressure O2 Sat by Pulse 100 100 100 Oximetry 03/22/20 03/22/20 03/22/20 17:17 17:22 17:27 Temperature Pulse Rate 79 93 H 82 Respiratory Rate Blood Pressure O2 Sat by Pulse 100 100 100 Oximetry 03/22/20 03/22/20 03/22/20 17:32 17:37 17:38 Temperature Pulse Rate 85 83 78 Respiratory Rate Blood Pressure 142/93 O2 Sat by Pulse 100 100 Oximetry 03/22/20 03/22/20 03/22/20 17:42 17:47 17:52 Temperature Pulse Rate 81 82 80 Respiratory Rate Blood Pressure O2 Sat by Pulse 100 100 100 Oximetry 03/22/20 03/22/20 17:57 18:02 Temperature Pulse Rate 101 H 92 H Respiratory Rate Blood Pressure O2 Sat by Pulse 99 100 Oximetry - Labs Labs: Abnormal Labs 03/19/20 03/22/20 21:20 13:22 RBC 3.59 L RDW 17.4 H 17.7 H Laboratory Results - last 24 hr 03/22/20 03/22/20 13:22 13:22 WBC 8.0 RBC 3.59 L Hgb 10.6 Hct 31.8 MCV 89 MCH 30 MCHC 33 RDW 17.7 H Plt Count 185 Blood Type A POSITIVE Antibody Screen Negative
[2020-03-22] MEDS ORDERED: FAMOTIDINE 20 MG/2 ML INJ IV ONE ×2 (20:26→23:30)
[2020-03-22] MEDS ORDERED: BICITRA ORAL LIQD 30ML PO ONE ×2 (20:26→23:30)
[2020-03-22] MEDS ORDERED: METOCLOPRAMIDE 10 MG/2 ML INJ IV ONE ×2 (20:26→23:30)
--- NOTE | 2020-03-22 20:29 | Procedure Note ---
OB Delivery Note - Delivery Date of Delivery: 03/22/20 Surgeon: JUANCARLOS MCNEIL Estimated blood loss: 1000cc - Section Preop diagnosis: arrest of descent Postop diagnosis: other (chorioamnionitis) section procedure: primary low transverse Disposition: PACU Complications: other Narrative: Preop diagnosis: IUP at 41+ weeks, failed IOL, arrest of descent suspected early chorioamnionitis Postop diagnosis: Same Procedure: Primary low transverse section via Pfannenstiel incision Surgeon: Dr. Juancarlos Mcneil Anesthesia spinal Complications none EBL 1000ml IV fluids 1500 mL LR, Clindamycin [id number] dose intraoperatively Urine output 100mL, clear Drains Ramos to gravity Findings: Viable male with weight 3519gms and 8/9 normal uterus tubes and ovaries bilaterally. Thick meconium. Procedure: Patient was consented in 2009 taken to the operating room where she received excellent spinal anesthesia. She was then placed in the dorsal supine position with a leftward tilt. The abdomen was prepped and draped in a sterile fashion, and a timeout was verified. Adequate anesthesia was confirmed prior to the skin incision. A Pfannenstiel skin incision was made with a scalpel taken down to the underlying structures and the fascia was incised in the midline. The incision was extended laterally with curved Henao scissors, the superior and inferior aspects of the fascial incisions were grasped with Edmundo clamps and the rectus muscles dissected sharply. The abdomen was entered bluntly in the midline carried down inferiorly with good visualization of the bladder. The vesicouterine peritoneum was tented with Uzbek forceps and incised in the midline with Metzenbaum scissors and the vesicouterine peritoneum taken down sharply. Bladder blade was inserted, the uterine incision was made sharply with a scalpel. The inferior and superior aspect of the uterine incisions were extended bluntly, the baby's head was delivered atraumatically with a Vacuum. The remainder of the delivery was atraumatic, a loose nuchal cord was reduced after delivery. The cord was clamped and cut and baby handed to waiting NICU team. An intact placenta with three-vessel cord delivered manually. The uterus was then cleared of all clots and debris and the uterus exteriorized. The uterine incision was closed with 2 layers of 0 chromic with excellent hemostasis. The abdomen was then irrigated with warm normal saline and the uterus placed back into the abdomen atraumatically. A second look at the uterine incision and ensured hemostasis. a procoagulant applied to the uterine incision prior to closure of the peritoneum. The peritoneum was closed with 3-0 Vicryl, the rectus muscles approximated with 3-0 Vicryl, and the fascia closed with 0 Vicryl in the usual fashion. The subcuticular structures were closed with interrupted sutures of 3-0 Vicryl and the skin closed with ayse. A pressure dressing was applied. All sponge needle and instrument counts were correct x2. There were no complications. Mom to the recovery area and baby to NICU in stable condition. EBL 1000 mL Otto Mcneil MD
[2020-03-22] MEDS ORDERED: PROMETHAZINE 25 MG TAB PO PRN (20:31)
[2020-03-22] MEDS ORDERED: PROMETHAZINE 25 MG RECT SUPP PR PRN (20:31)
[2020-03-22] MEDS ORDERED: MORPHINE 4 MG/1 ML INJ IV PRN (20:31)
[2020-03-22] MEDS ORDERED: HYDROmorphone 1 MG/1 ML INJ IV PRN (20:31)
[2020-03-22] MEDS ORDERED: ONDANSETRON 4 MG/2 ML INJ IV PRN (20:31)
--- NOTE | 2020-03-22 20:31 | Anesthesia Day of Surgery ---
Anesthesia Day of Surgery - Day of Surgery Patient Examined: Yes Patient H&P Reviewed: Yes Patient is NPO: Yes Beta Blockers: No Cardiac Clearance: No Pulmonary Clearance: No Scotty's Test: N/A
[2020-03-22] MEDS ORDERED: BUPIVACAINE/PF (0.5%) 5 MG/1 ML 30 ML VIAL INFILTRATI ONE (20:36)
[2020-03-22] MEDS ORDERED: ceFAZolin/Water 2 GM/20 ML 2 GM/20 ML SYRINGE IV NR (21:00)
[2020-03-22] MEDS ORDERED: LACTATED RINGERS 1,000 ML IV SCH (21:00)
[2020-03-22] MEDS ORDERED: OXYTOCIN 20 UNIT/1000ML DRIP 20 UNITS/1,000 ML BAG IV SCH (21:00)
[2020-03-22] MEDS ORDERED: ceFAZolin/STERILE WATER 2 GM/20 ML SYRINGE IV ONE (23:03)
[2020-03-22] MEDS ORDERED: WATER FOR IRRIG STERILE 1,500 ML BOTTLE IR ONE (23:03)
[2020-03-22] MEDS ORDERED: SODIUM CHLORIDE 0.9% IRR 1,500 ML BOTTLE IR ONE (23:03)
[2020-03-22] MEDS ORDERED: ONDANSETRON 4 MG/2 ML INJ ONE (23:39)
[2020-03-22] MEDS ORDERED: PHENYLEPHRINE/NS 1,000 MCG/10 ML SYRINGE (OR USE) IV ONE (23:39)
[2020-03-22] MEDS ORDERED: BUPIVACAINE /DEX-WATER 0.75% (2 ML) AMPULE INFILTRATI ONE (23:39)
[2020-03-22] MEDS ORDERED: ePHEDrine SULFATE 50 MG/1 ML INJ ONE (23:39)
[2020-03-22] MEDS ORDERED: OXYTOCIN 10 UNIT/1 ML INJ ONE (23:39)
[2020-03-22] MEDS ORDERED: CLINDAMYCIN 600 MG/50 mL 600 MG/50 ML BAG IV ONE (23:50)
[2020-03-22] MEDS ORDERED: METHYLERGONOVINE MALEATE 0.2 MG/ML VIAL IM ONE (23:51)
[2020-03-22] MEDS ORDERED: ESMOLOL 100 MG/10 ML INJ IV ONE (23:56)
[2020-03-23] MEDS ORDERED: WITCH HAZEL/ GLYCERIN PAD TP PRN (00:24)
[2020-03-23] MEDS ORDERED: MORPHINE 4 MG/1 ML INJ IV PRN (00:24)
[2020-03-23] MEDS ORDERED: LANOLIN/ZINC/DIMETHICONE (LANSINOH) 7 GM TP PRN (00:24)
[2020-03-23] MEDS ORDERED: NALOXONE 0.4 MG/1 ML INJ IV PRN (00:24)
--- NOTE | 2020-03-23 00:51 | Progress Note ---
Spinal Anesthesia Block - Spinal Anesthesia Block Start Time: 23:10 Stop Time: 23:30 Performed by:: PHILLIP ROSSI Procedure: Spinal anesthesia block is being performed for [C/S]. H&P, labs have been reviewed. Patient's questions and concerns have been answered. Informed consent has been performed. Timeout has was performed. Patient in sitting position on side of bed. Sterile prep and drape was performed. 3 mL 1% lidocaine skin wheal at L [3]-L [4]. Needle introducer advanced. 25-gauge spinal needle advanced, [+] CSF [_] blood. [Marcaine 10.5mg and Precedex 5mcg] Spinal dose was given. All needles removed. Patient tolerated procedure well.
[2020-03-23] MEDS ORDERED: OXYTOCIN 20 UNIT/1000ML DRIP 20 UNITS/1,000 ML BAG IV SCH (01:00)
[2020-03-23] MEDS ORDERED: METHYLERGONOVINE MALEATE 0.2 MG/ML VIAL IM ONE (02:07)
[2020-03-23] MEDS: MORPHINE 2 MG/1 ML INJ IV PRN ×2 (06:41→11:29)
[2020-03-23] MEDS: HYDROcodone/ACETAMINOPHEN 5-325 MG TAB PO PRN ×2 (09:05→21:16)
[2020-03-23] MEDS: ONDANSETRON 4 MG/2 ML INJ IV PRN (09:05)
--- NOTE | 2020-03-23 10:01 | Progress Note ---
Assessment and Plan - Patient Problems (1) S/P primary low transverse Current Visit: Yes Status: Acute Plan to address problem: Continue routine PP orders Keep drsg clean and dry, remove on POD #2 Advance diet after passing flatus Anticipate d/c home in 24-48 hrs (2) Anemia Current Visit: Yes Status: Acute Qualifiers: Anemia type: other cause Other causes of anemia: acute posthemorrhagic Qualified Code(s): D62 - Acute posthemorrhagic anemia Plan to address problem: Asymptomatic Increase iron rich foods when back to regular diet Subjective - Subjective Date of service: 03/23/20 Principal diagnosis: S/P primary C/S; POD #1 Interval history: See admission H & P; OB operative report and PP progress notes Patient reports: appetite normal, voiding normally (catherter in place), pain poorly controlled, no flatus, no bowel movement : doing well, bottle feeding (and ) Objective - Vital Signs Latest vital signs: Vital Signs Temp Pulse Resp BP BP Pulse Ox 03/23/20 08:09 98.8 F 137 H 24 112/62 97 03/23/20 04:34 98.2 F 124 H 18 114/65 97 03/23/20 02:25 99.1 F 103 H 20 130/79 100 03/23/20 01:45 98.1 F 105 H 21 116/75 100 03/23/20 01:30 109 H 24 113/64 100 03/23/20 01:15 100 H 21 121/73 100 03/23/20 01:00 98 H 16 118/67 99 03/23/20 00:45 95 H 15 128/67 100 03/23/20 00:40 97 H 21 126/68 100 03/23/20 00:35 99 H 21 120/63 100 03/23/20 00:30 98.9 F 111 H 17 117/69 100 03/22/20 22:57 132 H 100 03/22/20 22:52 119 H 100 03/22/20 22:47 121 H 100 03/22/20 22:42 116 H 100 03/22/20 22:37 129 H 100 03/22/20 22:32 113 H 100 03/22/20 22:27 119 H 100 03/22/20 22:22 111 H 100 03/22/20 22:17 109 H 100 10/05/20 22:12 113 H 100 10/05/20 22:07 117 H 100 10/05/20 22:02 107 H 100 10/05/20 21:57 102 H 100 10/05/20 21:54 99 H 137/67 10/05/20 21:52 107 H 99 10/05/20 21:47 96 H 100 10/05/20 21:42 118 H 100 10/05/20 21:37 108 H 100 10/05/20 21:32 110 H 99 10/05/20 21:27 102 H 100 10/05/20 21:22 98 H 100 10/05/20 21:17 105 H 100 10/05/20 21:12 107 H 100 10/05/20 21:07 96 H 100 10/05/20 21:02 107 H 100 10/05/20 20:57 106 H 100 10/05/20 20:52 102 H 100 10/05/20 20:47 104 H 99 10/05/20 20:42 109 H 99 10/05/20 20:37 105 H 100 10/05/20 20:32 102 H 100 10/05/20 20:27 94 H 100 10/05/20 20:22 99 H 100 10/05/20 20:17 111 H 100 10/05/20 20:12 103 H 100 10/05/20 20:07 96 H 100 10/05/20 20:02 92 H 100 10/05/20 19:57 96 H 99 10/05/20 19:54 98.8 F 97 H 16 144/91 100 10/05/20 19:53 89 144/91 10/05/20 19:52 105 H 100 10/05/20 19:47 97 H 100 10/05/20 19:42 88 100 10/05/20 19:38 83 154/95 10/05/20 19:37 86 100 10/05/20 19:32 91 H 100 10/05/20 19:27 96 H 99 10/05/20 19:22 101 H 100 10/05/20 19:17 86 99 10/05/20 19:12 88 100 10/05/20 19:07 95 H 100 10/05/20 19:02 92 H 98 10/05/20 18:57 89 151/86 100 10/05/20 18:55 88 163/102 10/05/20 18:52 91 H 99 10/05/20 18:47 91 H 100 10/05/20 18:42 98 H 100 10/05/20 18:38 88 162/94 10/05/20 18:37 99 H 100 10/05/20 18:32 100 H 100 10/05/20 18:27 95 H 99 10/05/20 18:22 101 H 100 10/05/20 18:17 93 H 100 10/05/20 18:12 93 H 100 10/05/20 18:07 92 H 100 10/05/20 18:02 92 H 100 10/05/20 17:57 101 H 99 10/05/20 17:52 80 100 10/05/20 17:47 82 100 10/05/20 17:42 81 100 10/05/20 17:38 78 142/93 10/05/20 17:37 83 100 10/05/20 17:32 85 100 10/05/20 17:27 82 100 10/05/20 17:22 93 H 100 10/05/20 17:17 79 100 10/05/20 17:12 93 H 100 10/05/20 17:07 86 100 10/05/20 17:02 78 100 10/05/20 17:00 98.7 F 10/05/20 16:57 77 100 10/05/20 16:52 82 100 10/05/20 16:47 82 100 10/05/20 16:42 91 H 100 10/05/20 16:37 85 143/95 99 10/05/20 16:32 100 H 100 10/05/20 16:27 77 100 10/05/20 16:22 83 100 10/05/20 16:17 81 100 10/05/20 16:12 76 100 10/05/20 16:07 76 100 10/05/20 16:02 79 100 10/05/20 15:57 85 100 10/05/20 15:52 84 100 10/05/20 15:47 82 100 10/05/20 15:42 74 100 10/05/20 15:39 83 130/82 10/05/20 15:37 101 H 100 10/05/20 15:32 69 100 10/05/20 15:27 69 100 10/0520 15:22 67 100 03/22/20 15:17 66 100 03/22/20 15:12 67 100 03/22/20 15:07 70 100 03/22/20 15:02 75 100 03/22/20 14:57 79 100 03/22/20 14:52 70 100 03/22/20 14:47 81 100 03/22/20 14:42 74 100 03/22/20 14:38 75 128/84 03/22/20 14:37 77 100 03/22/20 14:32 68 100 03/22/20 14:30 98.0 F 03/22/20 14:27 68 100 03/22/20 14:22 67 100 03/22/20 14:17 67 100 03/22/20 14:12 68 100 03/22/20 14:07 68 100 03/22/20 14:02 72 100 03/22/20 13:57 92 H 100 03/22/20 13:52 69 100 03/22/20 13:47 70 100 03/22/20 13:42 72 100 03/22/20 13:38 75 116/73 03/22/20 13:37 75 100 03/22/20 13:32 70 100 03/22/20 13:27 77 100 03/22/20 13:22 79 100 03/22/20 13:17 68 100 03/22/20 13:12 71 100 03/22/20 13:07 72 100 03/22/20 13:02 72 100 03/22/20 12:57 71 100 03/22/20 12:52 73 100 03/22/20 12:47 69 100 03/22/20 12:42 69 100 03/22/20 12:38 67 104/53 03/22/20 12:37 71 100 03/22/20 12:32 85 100 03/22/20 12:27 77 100 03/22/20 12:22 79 100 03/22/20 12:17 90 100 03/22/20 12:12 79 100 03/22/20 12:07 83 100 03/22/20 12:02 72 100 03/22/20 11:57 72 100 03/22/20 11:52 78 100 03/22/20 11:47 71 100 03/22/20 11:42 95 H 99 03/22/20 11:37 75 111/73 99 03/22/20 11:32 68 99 03/22/20 11:27 64 100 03/22/20 11:22 71 99 03/22/20 11:17 74 100 03/22/20 11:12 76 100 03/22/20 11:07 73 100 03/22/20 11:02 70 100 03/22/20 10:57 73 99 03/22/20 10:52 73 100 03/22/20 10:47 72 100 03/22/20 10:42 70 99 03/22/20 10:37 74 117/75 03/22/20 10:30 98.4 F 18 03/22/20 09:59 81 100 Intake and Output 03/22/20 03/23/20 03/23/20 23:59 07:59 15:59 Intake Total 1000 2000 Output Total 100 Balance 1000 1900 Intake: IV 1000 2000 Lactated Ringers 1,000 ml 1000 @ 125 mls/hr IV DIRECT SUSANNE Rx#:[id number] Output: Urine 100 Other: Estimated Blood Loss 1,000 - Exam Breasts: Present: normal Cardiovascular: Present: Regular rate Lungs: Present: Normal air movement Abdomen: Present: soft, tenderness Uterus: Present: firm, fundal height below umbilicus (U-1) Extremities: Present: edema Deep Tendon Reflex Grade: Normal +2 Incision: Present: dressed (no shadow drainage or bleeding noted) - Labs Labs: Abnormal lab results 03/22/20 Range/Units 13:22 RBC 3.59 L (3.65-5.03) M/mm3 RDW 17.7 H (13.2-15.2) %
[2020-03-23] MEDS ORDERED: D5W/LACTATED RINGERS 1,000 ML IV SCH (11:00)
[2020-03-23 13:58] LABS: Hematocrit 25.5 % (30.3-42.9); Hemoglobin 8.6 gm/dl (10.1-14.3)
--- NOTE | 2020-03-23 14:58 | Post Anesthesia Evaluation ---
- Post Anesthesia Evaluation Patient Participated: Yes Airway Patent: Yes Stable Respiratory Function: Yes Nausea/Vomiting: No Temp > 96.8F: Yes Pain Manageable: Yes Adequeate Hydration: Yes Anesthesia Complications: No Block Receding Appropriately: Yes Patient on Ventilator: No
[2020-03-23] MEDS ORDERED: DIPHtheria,PERTUSSIS(ACELL),TETANUS VACCINE/PF 0.5 ML VIAL IM ONE (20:08)
[2020-03-23] MEDS ORDERED: CLINDAMYCIN 600 MG/50 mL 600 MG/50 ML BAG IV ONE (21:00)
[2020-03-23] MEDS ORDERED: CLINDAMYCIN 300 MG CAP PO ONE (21:00)
[2020-03-24] MEDS: IBUPROFEN 800 MG TAB PO PRN ×2 (05:57→23:48)
[2020-03-24] MEDS ORDERED: MAGNESIUM HYDROXIDE (MOM) ORAL LIQD UDC PO PRN (06:46)
[2020-03-24] MEDS ORDERED: IRON DEXTRAN COMPLEX 100 MG/2 ML INJ IM NR (11:19)
--- NOTE | 2020-03-24 12:45 | Progress Note ---
Assessment and Plan A: POD #2 Asymptomatic Anemia P: Follow Routine orders Infed 100mg IM x 1 dose D/C home in the AM RTO in one week Subjective - Subjective Date of service: 03/24/20 Principal diagnosis: S/P primary C/S; POD #1 Patient reports: appetite normal, voiding normally, pain well controlled, flatus, ambulating normally [place]: doing well, bottle feeding Objective - Vital Signs Latest vital signs: Vital Signs Temp Pulse Resp BP BP Pulse Ox 03/24/20 08:37 98.8 F 116 H 18 116/70 96 03/23/20 23:56 98.2 F 118 H 20 111/71 100 03/23/20 16:22 98.5 F 107 H 20 112/71 98 Intake and Output 03/23/20 03/24/20 03/24/20 22:59 06:59 14:59 Intake Total 120 240 Balance 120 240 Intake: Oral 120 240 Other: Total, Intake Amount 120 240 - Exam Breasts: Present: normal Cardiovascular: Present: Regular rate Lungs: Present: Clear to auscultation, Normal air movement Abdomen: Present: normal appearance, soft, normal bowel sounds Uterus: Present: normal, firm, fundal height below umbilicus Extremities: Present: normal Incision: Present: normal, dry, intact, other (ayse in place) - Labs Labs: Abnormal lab results 03/23/20 Range/Units 13:23 Hgb 8.6 L (10.1-14.3) gm/dl Hct 25.5 L D (30.3-42.9) %
--- NOTE | 2020-03-24 12:47 | Discharge Summary ---
Providers - Providers Date of Admission: 03/19/20 21:22 Date of discharge: 03/25/20 Attending physician: DAVID SPENCER Primary care physician: DAVID SPENCER Hospitalization Reason for admission: induction of labor Delivery: Procedure: primary low transverse Episiotomy: none Laceration: none Incision: normal, dry, intact, other (ayse in place) Other procedures: none complications: none Discharge diagnosis: IUP at term delivered baby: male Condition at discharge: Good Disposition: DC-01 TO HOME OR SELFCARE Plan - Provider Discharge Summary Activity: routine, no sex for 6 weeks, no heavy lifting 4 weeks, no strenuous exercise Diet: routine Instructions: routine Additional instructions: [] Smoking cessation referral if applicable(refer to patient education folder for contact #) [] Refer to [facility]'s [facility] Booklet Call your doctor immediately for: * Fever > 100.5 * Heavy vaginal bleeding ( >1 pad per hour) * Severe persistent headache * Shortness of breath * Reddened, hot, painful area to leg or breast * Drainage or odor from incision. * Keep incision clean and dry at all times and follow doctor's instructions regarding bathing/showering - Follow up plan Follow up: DAVID SPENCER MD [Primary Care Provider] - 7 Days
[2020-03-24] MEDS: HYDROcodone/ACETAMINOPHEN 5-325 MG TAB PO PRN (16:45)
[2020-03-25] MEDS: IBUPROFEN 800 MG TAB PO PRN (06:21)
[2020-03-25] MEDS: HYDROcodone/ACETAMINOPHEN 5-325 MG TAB PO PRN (10:21)
[2020-03-25 15:32] VITALS: BP 106/74
== END 2020-03-25 15:30 | disposition home or self-care (01) | DRG 787 ==
LOC: TRG 20:15 → APU 20:17 → LD 20:45 → TRG 21:22 → OB 03-23 02:30
PROVIDERS: ADMIT Obstetrics & Gynecology; ATTEND Obstetrics & Gynecology
PROC: 3E0P7VZ Introduction of Hormone into Female Reproductive, Via Natural or Artificial Opening (ICD-10-PCS; 2020-03-20)
PROC: 10D00Z1 Extraction of Products of Conception, Low, Open Approach (ICD-10-PCS; principal; 2020-03-22)
PROC: 3E0R3BZ Introduction of Anesthetic Agent into Spinal Canal, Percutaneous Approach (ICD-10-PCS; 2020-03-22)
PROC: 00HU33Z Insertion of Infusion Device into Spinal Canal, Percutaneous Approach (ICD-10-PCS; 2020-03-22)
PROC: 10907ZC Drainage of Amniotic Fluid, Therapeutic from Products of Conception, Via Natural or Artificial Opening (ICD-10-PCS; 2020-03-22)
PROC: 3E0234Z Introduction of Serum, Toxoid and Vaccine into Muscle, Percutaneous Approach (ICD-10-PCS; 2020-03-23)
DX: O41.1230 Chorioamnionitis, third trimester, not applicable or unspecified (principal); D62 Acute posthemorrhagic anemia; O66.40 Failed trial of labor, unspecified; O77.0 Labor and delivery complicated by meconium in amniotic fluid; O32.4XX0 Maternal care for high head at term, not applicable or unspecified; Z37.0 Single live birth; O98.819 Other maternal infectious and parasitic diseases complicating pregnancy, unspecified trimester; B95.1 Streptococcus, group B, as the cause of diseases classified elsewhere; Z3A.41 41 weeks gestation of pregnancy; Z23 Encounter for immunization; Z20.828 Contact with and (suspected) exposure to other viral communicable diseases; O90.81 Anemia of the puerperium
CPT/HCPCS: 36415; 76815; 85014; 85018; 85027; 86850; 86900; 86901; 88307; 90471; 90715; G0378; A6250; J0290; J0690; J2210; J2270; J2370; J2405; J2590; J2765; J3490; J7120; U0003-CS

== ENCOUNTER 2022-03-04 21:00 | Inpatient (IN) | payer OTHER ==
[2022-03-04] MEDS ORDERED: METHYLERGONOVINE MALEATE 0.2 MG/ML VIAL IM PRN (21:28)
[2022-03-04] MEDS ORDERED: MINERAL OIL 30 ML ORAL LIQD PO PRN (21:28)
[2022-03-04] MEDS ORDERED: LIDOCAINE (2%) 20 MG/1 ML VIAL 20 ML MDV INFILTRATI ONE (21:28)
[2022-03-04] MEDS ORDERED: BUTORPHANOL 2 MG/1 ML INJ IV PRN ×2 (21:28)
[2022-03-04] MEDS ORDERED: AMPICILLIN/NS 2 GM/100 ML 2 GM/100 ML BAG IV ONE (21:28)
[2022-03-04] MEDS ORDERED: CARBOPROST TROMETHAMINE 250 MCG/1 ML INJ IM PRN (21:28)
[2022-03-04] MEDS ORDERED: ePHEDrine SULFATE 50 MG/1 ML INJ IV PRN ×2 (21:28→23:55)
[2022-03-04] MEDS ORDERED: ACETAMINOPHEN 325 MG TAB PO PRN (21:28)
[2022-03-04] MEDS ORDERED: miSOPROStol 200 MCG TAB PR PRN (21:28)
[2022-03-04] MEDS ORDERED: TERBUTALINE 1 MG/1 ML INJ SUB-Q PRN (21:28)
[2022-03-04] MEDS ORDERED: LOPERAMIDE 2 MG CAP PO PRN (21:28)
[2022-03-04] MEDS ORDERED: OXYTOCIN 10 UNIT/1 ML INJ IM PRN (21:28)
[2022-03-04] MEDS ORDERED: LACTATED RINGERS 1,000 ML IV SCH (21:30)
--- NOTE | 2022-03-04 21:36 | History and Physical Report ---
History of Present Illness Date of examination: 03/04/22 Date of admission: March 04, 2022 Chief complaint: I'm having contractions History of present illness: 27 y/o with care at [facility] [place] presents in active labor at Past History Past Medical History: no pertinent history Past Surgical History: section [employer] History: chlamydia (txed) Social history: no significant social history - Obstetrical History Expected Date of Delivery: 03/14/22 Actual Gestation: 38 Week(s) 4 Day(s) : 2 Para: 1 Number of Living Children: 1 Medications and Allergies Allergies Allergy/AdvReac Type Severity Reaction Status Date / Time No Known Allergies Allergy Unverified 03/19/20 21:33 Home Medications Medication Instructions Recorded Confirmed Last Taken Type Pnv Plus Multivit Tab 1 tab PO DAILY 03/19/20 03/19/20 03/19/20 History 0900 Ibuprofen [Motrin] 600 mg PO Q8H PRN #60 tablet 03/25/20 Unknown Rx oxyCODONE /ACETAMINOPHEN [Percocet 1 tab PO Q6HR PRN #20 tablet 03/25/20 Unknown Rx 5/325] Review of Systems All systems: negative - Physical Exam Breasts: Positive: deferred, mass Lungs: Positive: Clear to auscultation Abdomen: Positive: soft Genitourinary (Female): Positive: normal external genitalia Vulva: both: normal Uterus: Positive: enlarged Deep Tendon Reflex Grade: Normal +2 - Obstetrical FHR: category 1 Uterine Contraction Monitor Mode: External Cervical Dilatation: 6 Cervical Effacement Percentage: 80 station: -1 Uterine Contraction Pattern: Regular Uterine Contraction Intensity: Moderate Results All other labs normal. Assessment and Plan A: Active labor at 38. 4 weeks Prior for distress P: Expect
[2022-03-04] MEDS ORDERED: OXYTOCIN DRIP 30 UNITS/500 ML BAG IV SCH ×2 (22:00)
[2022-03-04 22:39] LABS: Hematocrit 38.4 % (30.3-42.9); Hemoglobin 12.9 gm/dl (10.1-14.3); Mean Corpuscular HGB Conc 34 % (30-34); Mean Corpuscular Volume 90 fl (79-97); Platelet Count 211 K/mm3 (140-440); Red Blood Count 4.27 M/mm3 (3.65-5.03); Red Cell Distribution Width 16.6 % (13.2-15.2)
[2022-03-04] MEDS ORDERED: NALOXONE 0.4 MG/1 ML INJ IV PRN (23:55)
[2022-03-04] MEDS ORDERED: fentaNYL-BUPIV 2 MCG/ML-0.125% 200 MCG/100 ML BAG EPIDURAL SCH (23:55)
--- NOTE | 2022-03-04 23:58 | Progress Note ---
Labor Epidural - Labor Epidural Start Time: 23:37 Stop Time: 23:43 Performed by:: EDWARD CHILDS Procedure: Epidural Requested for Labor Pain. H&P and PT Chart reviewed and consent obtained. Time out performed and the procedure was explained, all questions answered. Patient was placed in a sitting position with monitors applied. The PTs back was prepped and draped in usual sterile fashion. The Skin was localized with 3 mL of 1% lidocaine at L3-L4. A 17-gauge Touhy epidural needle was advanced to LIVAN with saline at 7 cm and no blood/CSF was noted via epidural needle. Epidural catheter was advanced to 12 cm. There was negative aspiration for blood and CSF in the catheter and negative response to a test dose of 3 ml 1.5% lidocaine w/ Epi and a sterile dressing was applied Patient tolerated the procedure well and there were no immediate complications noted.
--- NOTE | 2022-03-04 23:58 | Anesthesia Consultation ---
Anesthesia Consult and Med Hx Date of service: 03/04/22 - Airway Anesthetic Teeth Evaluation: Good ROM Head & Neck: Adequate Mental/Hyoid Distance: Adequate Mallampati Class: Class II Intubation Access Assessment: Probably Good - Pulmonary Exam CTA: Yes - Cardiac Exam Cardiac Exam: RRR - Pre-Operative Health Status ASA Pre-Surgery Classification: ASA2 Proposed Anesthetic Plan: Epidural - Pulmonary Hx Smoking: No Hx Asthma: No Hx Respiratory Symptoms: No SOB: No COPD: No Hx Pneumonia: No Hx Sleep Apnea: No - Cardiovascular System Hx Hypertension: No Hx Coronary Artery Disease: No Hx Heart Attack/AMI: No Hx Angina: No Hx Percutaneous Transluminal Coronary Angioplasty (PTCA): No Hx Cardia Arrhythmia: No Hx Pacemaker: No Hx Internal Defibrillator: No Hx Valvular Heart Disease: No Hx Heart Murmur: No Hx Peripheral Vascular Disease: No - Central Nervous System Hx Neuromuscular Disorder: No Hx Seizures: No CVA: No Hx Back Pain: No Hx Psychiatric Problems: No - Gastrointestinal Hx Ulcer: No Hx Gastroesophageal Reflux Disease: No - Endocrine Hx Renal Disease: No Hx End Stage Renal Disease: No Hx Cirrhosis: No Hx Liver Disease: No Hx Insulin Dependent Diabetes: No Hx Non-Insulin Dependent Diabetes: No Hx Thyroid Disease: No Hx Hypothyroidism: No Hx Hyperthyroidism: No - Hematic Hx Anemia: No Hx Sickle Cell Disease: No - Other Systems Hx Alcohol Use: No Hx Substance Use: No Hx Cancer: No Hx Obesity: No
--- NOTE | 2022-03-04 23:58 | Anesthesia Day of Surgery ---
Anesthesia Day of Surgery - Day of Surgery Patient Examined: Yes Patient H&P Reviewed: Yes Patient is NPO: Yes Beta Blockers: No Cardiac Clearance: No Pulmonary Clearance: No Scotty's Test: N/A
--- NOTE | 2022-03-05 00:36 | Event Note ---
Date: 03/05/22 S: feeling better O: VE 7/C/-2, IUPC placed, CAT I tracing, Contractions irregular, epidural in place A: 38.4 weeks active labor P: Expect
[2022-03-05] MEDS ORDERED: AMPICILLIN/NS 1 GM/50 ML 1 GM/50 ML BAG IV SCH (02:00)
--- NOTE | 2022-03-05 02:10 | Event Note ---
Date: 03/05/22 S: feeling ok O: /-1 , contractions every 2-3 min A: Active labor P: Expect
--- NOTE | 2022-03-05 07:48 | Procedure Note ---
OB Delivery Note - Delivery Date of Delivery: 03/05/22 Surgeon: JENNIFER HORNE Estimated blood loss: 300cc - Vaginal Delivery presentation: vertex Delivery position: OP Intrapartum events: decreased FHT variability, uterine atony Delivery induction: none Delivery augmentation: rupture of membranes, pitocin Delivery monitor: external FHT, external uterine, internal FHT Route of delivery: vacuum extraction Indicators for instrumentation: maternal exhaustion (Fully dilated for 4 hours or more.) Delivery placenta: expressed Delivery cord: 3 umbilical vessels Episiotomy: none Delivery laceration: 2nd degree (midline) Delivery repair: vicryl Anesthesia: epidural - A at 1 minute: 8 (6lbs 15oz) at 5 minutes: 9 Infant Gender: Female (6lbs 5oz)
[2022-03-05] MEDS ORDERED: diphenhydrAMINE 25 MG CAP PO PRN (08:00)
[2022-03-05] MEDS ORDERED: PROMETHAZINE 25 MG TAB PO PRN (08:00)
[2022-03-05] MEDS ORDERED: LANOLIN/ZINC/DIMETHICONE (LANSINOH) 7 GM TP PRN (08:00)
[2022-03-05] MEDS ORDERED: ACETAMINOPHEN 325 MG TAB PO PRN (08:00)
[2022-03-05] MEDS ORDERED: ONDANSETRON 4 MG/2 ML INJ IV PRN (08:00)
[2022-03-05] MEDS ORDERED: WITCH HAZEL/ GLYCERIN PAD TP PRN (08:00)
[2022-03-05] MEDS ORDERED: PROMETHAZINE 25 MG RECT SUPP PR PRN (08:00)
[2022-03-05 20:45] LABS: Hematocrit 32.5 % (30.3-42.9)
[2022-03-05] MEDS ORDERED: MAGNESIUM HYDROXIDE (MOM) ORAL LIQD UDC PO PRN (22:00)
[2022-03-06] MEDS: oxyCODONE /ACETAMINOPHEN 5-325MG TAB PO PRN ×2 (04:47→21:26)
--- NOTE | 2022-03-06 12:15 | Progress Note ---
Assessment and Plan A: PP Day #1 Stable P: Follow Routine Orders D/C home today per patient request RTO in 6 Weeks Subjective - Subjective Date of service: 03/06/22 Patient reports: appetite normal, voiding normally, pain well controlled, fl atus, bowel movement, ambulating normally : doing well, bottle feeding (and ) Objective - Vital Signs Latest vital signs: Vital Signs Temp Pulse Resp BP BP Pulse Ox Pulse Ox 03/06/22 07:47 97.0 F L 69 20 103/67 96 03/06/22 04:47 20 03/06/22 00:00 98.3 F 89 20 105/76 100 03/05/22 20:00 99 03/05/22 17:39 84 18 117/79 100 03/05/22 16:24 98 03/05/22 15:00 99 Intake and Output 03/05/22 03/06/22 03/06/22 22:59 06:59 14:59 Intake Total 840 240 200 Output Total 600 Balance 240 240 200 Intake: Oral 360 240 200 Intake, Free Water 480 Output: Urine 600 Void 600 Other: Total, Intake Amount 360 240 200 Total, Output Amount 600 # Voids Void 1 1 - Exam Breasts: Present: normal Cardiovascular: Present: Regular rate Lungs: Present: Clear to auscultation, Normal air movement Abdomen: Present: normal appearance, soft, normal bowel sounds Uterus: Present: normal, firm, fundal height below umbilicus Extremities: Present: normal
--- NOTE | 2022-03-06 12:17 | Discharge Summary ---
Providers - Providers Date of Admission: 03/04/22 21:28 Date of discharge: 03/06/22 Attending physician: RACHEAL SANDRA MD Primary care physician: RACHEAL SANDRA MD Hospitalization Reason for admission: active labor Delivery: vacuum extraction Episiotomy: none Laceration: 2nd degree Other procedures: none complications: none Discharge diagnosis: IUP at term delivered [place] baby: female Condition at discharge: Good Disposition: 01 HOME / SELF CARE / HOMELESS Plan - Provider Discharge Summary Activity: routine, no sex for 6 weeks, no heavy lifting 4 weeks, no strenuous exercise Diet: routine Instructions: routine Additional instructions: [] Smoking cessation referral if applicable(refer to patient education folder for contact #) [] Refer to [facility] Booklet Call your doctor immediately for: * Fever > 100.5 * Heavy vaginal bleeding ( >1 pad per hour) * Severe persistent headache * Shortness of breath * Reddened, hot, painful area to leg or breast * Drainage or odor from incision. * Keep incision clean and dry at all times and follow doctor's instructions regarding bathing/showering - Follow up plan Follow up: RACHEAL SANDRA MD [Primary Care Provider] - 6 Weeks
[2022-03-07 14:55] VITALS: BP 122/85
== END 2022-03-07 15:27 | disposition home or self-care (01) | DRG 775 ==
LOC: TRG 21:00 → APU 21:05 → LD 21:28 → TRG 21:28 → OB 03-05 14:36
PROVIDERS: ADMIT Obstetrics & Gynecology Gynecology; ATTEND Obstetrics & Gynecology Gynecology
PROC: 10D07Z6 Extraction of Products of Conception, Vacuum, Via Natural or Artificial Opening (ICD-10-PCS; principal; 2022-03-05)
PROC: 0KQM0ZZ Repair Perineum Muscle, Open Approach (ICD-10-PCS; 2022-03-05)
PROC: 10H07YZ Insertion of Other Device into Products of Conception, Via Natural or Artificial Opening (ICD-10-PCS; 2022-03-05)
PROC: 3E0S3BZ Introduction of Anesthetic Agent into Epidural Space, Percutaneous Approach (ICD-10-PCS; 2022-03-05)
PROC: 00HU33Z Insertion of Infusion Device into Spinal Canal, Percutaneous Approach (ICD-10-PCS; 2022-03-05)
DX: O76 Abnormality in fetal heart rate and rhythm complicating labor and delivery (principal); O70.1 Second degree perineal laceration during delivery; Z3A.38 38 weeks gestation of pregnancy; Z37.0 Single live birth; Z20.822 Contact with and (suspected) exposure to COVID-19; O62.2 Other uterine inertia
CPT/HCPCS: 36415; 59025; 85014; 85018; 85027; 86850; 86900; 86901; 96360; 96361; 96365; 96366; 96367; 96374; G0378; J3490; J0290; J2590; U0003